=== PATIENT | female | born 1955 | race Caucasian/White ===

== ENCOUNTER → 2016-09-16 | Outpatient (CLI) | payer MEDICARE, MEDICAID | END | disposition short-term general hospital (02) | LOC: CLENT 10:02 | DX: K21.9 Gastro-esophageal reflux disease without esophagitis (principal); R13.10 Dysphagia, unspecified; R49.0 Dysphonia; G47.33 Obstructive sleep apnea (adult) (pediatric); E66.3 Overweight; E03.9 Hypothyroidism, unspecified; Z87.891 Personal history of nicotine dependence ==